=== PATIENT | male | born 1950 | race Caucasian/White ===

== ENCOUNTER 2022-08-07 18:20 | Inpatient (IN) | payer BC, OTHER ==
[~2022-08-07] VITALS: Ht 175.3 cm; Wt 73.0 kg
[2022-08-07] MEDS ORDERED: ALBUTEROL SULF 2.5 MG/0.5ML(0.5%) NEB SOLN NEB ONE (18:45)
[2022-08-07] MEDS ORDERED: cefTRIAXone 1GM/50ML D5W 50 ML IV ONE (18:45)
[2022-08-07] MEDS ORDERED: IPRATROPIUM BROM 0.5 MG/2.5ML INH SOL NEB ONE (18:45)
[2022-08-07 19:28] LABS: Basophils # (auto) 0 10 ^3/uL (0-0.2); Basophils % (auto) 0.6 % (0.0-2.0); Eosinophils # (auto) 0.1 10 ^3/uL (0-0.8); Eosinophils % (auto) 1.2 % (0.0-7.0); Hematocrit 44.5 % (41.0-53.0); Hemoglobin 15.4 g/dL (13.5-17.5); Lymphocytes # (auto) 1.3 10 ^3/uL (0.4-5.4); Lymphocytes % (auto) 15.4 % (10.0-50.0); Mean Corpuscular Hemoglobin 31.3 pg (28.0-32.0); Mean Corpuscular Hgb Conc. 34.6 g/dL (32.0-36.0); Mean Corpuscular Volume 90.4 fL (80.0-100.0); Monocytes # (auto) 0.6 10 ^3/uL (0-1.3); Monocytes % (auto) 7.2 % (0.0-12.0); Neutrophils # (auto) 6.2 10 ^3/uL (1.6-8.6); Neutrophils % (auto) 75.6 % (37.0-80.0); Nucleated Red Blood Cells % 0.1 %; Red Blood Cells 4.92 10^6/uL (4.5-5.90); Red Cell Distribution Width 13.4 % (11.8-14.3); White Blood Cell 8.2 10^3/uL (4.4-10.8)
[2022-08-07 19:46] LABS: Calcium 9.1 mg/dL (8.5-10.1); Potassium 3.9 mmol/L (3.5-5.1)
[2022-08-07 19:48] LABS: BUN/Creatinine Ratio 11.7 (10.0-20.0)
[2022-08-07 19:51] LABS: Bilirubin, Total 0.3 mg/dL (0.2-1.0); Total Protein 7.7 g/dL (6.4-8.2)
[2022-08-07] MEDS ORDERED: PIPERACILLIN-TAZOB 3.375GM 100 ML IV ONE (21:30)
[2022-08-07] MEDS ORDERED: IOHEXOL 350 MG/ML 100ML IJ ONE (21:34)
[2022-08-08] MEDS ORDERED: MORPHINE SULFATE INJ 2 MG/ml SYRG IV PRN (02:45)
[2022-08-08] MEDS ORDERED: ACETAMINOPHEN 325 MG TAB PO PRN (02:45)
[2022-08-08] MEDS ORDERED: NITROGLYCERIN 0.4 MG SL TAB SL PRN (02:45)
[2022-08-08] MEDS ORDERED: ONDANSETRON HCL 4 MG/2 ML VIAL IV PRN (02:45)
[2022-08-08] MEDS: TEMAZEPAM 15 MG CAP PO PRN ×2 (03:40→21:17)
[2022-08-08] MEDS ORDERED: CLINDAMYCIN 600MG IV 50 ML IV SCH (06:00)
[2022-08-08] MEDS ORDERED: CLINDAMYCIN 300MG IV 100 ML IV ONE (06:57)
[2022-08-08 06:59] LABS: Basophils # (auto) 0 10 ^3/uL (0-0.2); Basophils % (auto) 0.5 % (0.0-2.0); Eosinophils # (auto) 0.1 10 ^3/uL (0-0.8); Eosinophils % (auto) 1.2 % (0.0-7.0); Hematocrit 43.7 % (41.0-53.0); Hemoglobin 15.2 g/dL (13.5-17.5); Lymphocytes # (auto) 1.2 10 ^3/uL (0.4-5.4); Mean Corpuscular Hemoglobin 31.8 pg (28.0-32.0); Mean Corpuscular Hgb Conc. 34.8 g/dL (32.0-36.0); Mean Corpuscular Volume 91.4 fL (80.0-100.0); Monocytes # (auto) 0.7 10 ^3/uL (0-1.3); Monocytes % (auto) 7.1 % (0.0-12.0); Neutrophils # (auto) 8.2 10 ^3/uL (1.6-8.6); Neutrophils % (auto) 79.2 % (37.0-80.0); Nucleated Red Blood Cells % 0.1 %; Red Blood Cells 4.79 10^6/uL (4.5-5.90); Red Cell Distribution Width 13.4 % (11.8-14.3); White Blood Cell 10.3 10^3/uL (4.4-10.8)
[2022-08-08 07:22] LABS: Potassium 4.2 mmol/L (3.5-5.1)
[2022-08-08 07:33] LABS: Albumin 3.8 g/dL (3.4-5.0); BUN/Creatinine Ratio 9.9 (10.0-20.0); Bilirubin, Total 0.2 mg/dL (0.2-1.0); Total Protein 7.8 g/dL (6.4-8.2)
[2022-08-08 08:00] VITALS: BP 142/94
[2022-08-08] MEDS: ENOXAPARIN SOD 40 MG/0.4 ML SYRINGE SC SCH (09:49)
[2022-08-08] MEDS: ALBUTEROL SULF 2.5 MG/0.5ML(0.5%) NEB SOLN NEB PRN ×2 (10:30→19:34)
[2022-08-08] MEDS ORDERED: methylPREDNISolone SOD SUCC 40 MG/ML VL IV ONE (11:15)
[2022-08-08] MEDS: CLINDAMYCIN 300MG IV 50 ML IV SCH ×3 (14:24→23:24)
[2022-08-08] MEDS: cefTRIAXone 1GM/50ML D5W 50 ML IV SCH (19:06)
[2022-08-08] MEDS: methylPREDNISolone SOD SUCC 40 MG/ML VL IV SCH (21:30)
[2022-08-09] MEDS: CLINDAMYCIN 300MG IV 50 ML IV SCH ×6 (02:12→22:16)
[2022-08-09] MEDS: ALBUTEROL SULF 2.5 MG/0.5ML(0.5%) NEB SOLN NEB PRN (03:50)
[2022-08-09 06:19] LABS: Basophils # (auto) 0 10 ^3/uL (0-0.2); Basophils % (auto) 0.1 % (0.0-2.0); Eosinophils # (auto) 0 10 ^3/uL (0-0.8); Hemoglobin 15.7 g/dL (13.5-17.5); Lymphocytes # (auto) 0.7 10 ^3/uL (0.4-5.4); Lymphocytes % (auto) 5.9 % (10.0-50.0); Mean Corpuscular Hemoglobin 31.5 pg (28.0-32.0); Mean Corpuscular Hgb Conc. 34.1 g/dL (32.0-36.0); Mean Corpuscular Volume 92.3 fL (80.0-100.0); Monocytes # (auto) 0.4 10 ^3/uL (0-1.3); Monocytes % (auto) 3.1 % (0.0-12.0); Neutrophils # (auto) 10.5 10 ^3/uL (1.6-8.6); Neutrophils % (auto) 90.9 % (37.0-80.0); Nucleated Red Blood Cells % 0.1 %; Red Blood Cells 4.98 10^6/uL (4.5-5.90); Red Cell Distribution Width 13.2 % (11.8-14.3); White Blood Cell 11.5 10^3/uL (4.4-10.8)
[2022-08-09 06:40] LABS: BUN/Creatinine Ratio 20.7 (10.0-20.0); Calcium 9.4 mg/dL (8.5-10.1); Potassium 4.5 mmol/L (3.5-5.1)
[2022-08-09] MEDS: ALBUTEROL SULF 2.5 MG/0.5ML(0.5%) NEB SOLN NEB SCH ×4 (06:41→23:48)
[2022-08-09 10:57] VITALS: BP 138/80
[2022-08-09 11:30] VITALS: BP 138/80
[2022-08-09] MEDS: methylPREDNISolone SOD SUCC 40 MG/ML VL IV SCH ×2 (12:15→22:17)
[2022-08-09] MEDS: ENOXAPARIN SOD 40 MG/0.4 ML SYRINGE SC SCH (12:15)
[2022-08-09] MEDS ORDERED: FLUT1AER12 IN (12:47)
[2022-08-09 16:40] VITALS: BP 148/91
[2022-08-09] MEDS: cefTRIAXone 1GM/50ML D5W 50 ML IV SCH (18:33)
[2022-08-09 22:00] VITALS: BP 149/95
[2022-08-10] MEDS: TEMAZEPAM 15 MG CAP PO PRN ×2 (00:35→23:36)
[2022-08-10] MEDS: CLINDAMYCIN 300MG IV 50 ML IV SCH ×3 (00:38→06:51)
[2022-08-10 05:00] VITALS: BP 126/82
[2022-08-10] MEDS: ALBUTEROL SULF 2.5 MG/0.5ML(0.5%) NEB SOLN NEB SCH ×4 (06:10→23:38)
[2022-08-10 08:52] VITALS: BP 110/75
[2022-08-10] MEDS: ENOXAPARIN SOD 40 MG/0.4 ML SYRINGE SC SCH (09:56)
[2022-08-10] MEDS: methylPREDNISolone SOD SUCC 40 MG/ML VL IV SCH ×2 (09:59→21:32)
[2022-08-10 13:08] VITALS: BP 143/89
[2022-08-10] MEDS ORDERED: AZITHROMYCIN 250 MG TAB PO ONE (16:30)
[2022-08-10 16:35] VITALS: BP 148/91
[2022-08-10 20:00] VITALS: BP 142/88
[2022-08-10 22:00] VITALS: BP 141/89
[2022-08-11 05:00] VITALS: BP 142/85
[2022-08-11] MEDS: ALBUTEROL SULF 2.5 MG/0.5ML(0.5%) NEB SOLN NEB SCH ×4 (05:46→22:07)
[2022-08-11 05:49] VITALS: BP 142/85
[2022-08-11 09:00] VITALS: BP 122/77
[2022-08-11] MEDS: ENOXAPARIN SOD 40 MG/0.4 ML SYRINGE SC SCH (09:00)
[2022-08-11] MEDS: AZITHROMYCIN 250 MG TAB PO SCH (09:00)
[2022-08-11] MEDS: methylPREDNISolone SOD SUCC 40 MG/ML VL IV SCH ×2 (09:01→23:03)
[2022-08-11 13:00] VITALS: BP 130/66
[2022-08-11 17:00] VITALS: BP 149/93
[2022-08-11 22:00] VITALS: BP 125/93
[2022-08-11] MEDS: TEMAZEPAM 15 MG CAP PO PRN (23:04)
[2022-08-12] MEDS: ALBUTEROL SULF 2.5 MG/0.5ML(0.5%) NEB SOLN NEB SCH ×6 (02:04→22:04)
[2022-08-12 05:00] VITALS: BP 113/78
[2022-08-12 08:30] VITALS: BP 118/76
[2022-08-12] MEDS: methylPREDNISolone SOD SUCC 40 MG/ML VL IV SCH ×2 (10:02→21:08)
[2022-08-12] MEDS: ENOXAPARIN SOD 40 MG/0.4 ML SYRINGE SC SCH (10:03)
[2022-08-12] MEDS: AZITHROMYCIN 250 MG TAB PO SCH (10:03)
[2022-08-12 12:20] VITALS: BP 132/96
[2022-08-12 17:20] VITALS: BP 132/88
[2022-08-12] MEDS: TEMAZEPAM 15 MG CAP PO PRN (21:08)
[2022-08-12 22:00] VITALS: BP 125/96
[2022-08-13] MEDS: ALBUTEROL SULF 2.5 MG/0.5ML(0.5%) NEB SOLN NEB SCH ×6 (02:03→22:03)
[2022-08-13 05:00] VITALS: BP 128/82
[2022-08-13] MEDS ORDERED: SODIUM CHLORIDE 0.9 % NEB SOLN 3ML NEB ONE (06:36)
[2022-08-13 08:30] VITALS: BP 136/94
[2022-08-13] MEDS: AZITHROMYCIN 250 MG TAB PO SCH (09:07)
[2022-08-13] MEDS: ENOXAPARIN SOD 40 MG/0.4 ML SYRINGE SC SCH (09:07)
[2022-08-13] MEDS: methylPREDNISolone SOD SUCC 40 MG/ML VL IV SCH ×2 (09:07→21:05)
[2022-08-13 09:11] VITALS: BP 148/90
[2022-08-13] MEDS ORDERED: AZIT500T66 PO (09:52)
[2022-08-13] MEDS ORDERED: PRED20TA2 PO (09:52)
[2022-08-13 13:03] VITALS: BP 133/87
[2022-08-13 17:00] VITALS: BP 155/88
[2022-08-13] MEDS: TEMAZEPAM 15 MG CAP PO PRN (21:05)
[2022-08-13 22:00] VITALS: BP 109/81
[2022-08-14] VITALS (7 sets, daily range): BP systolic 109–155; BP diastolic 73–94
[2022-08-14] MEDS: ALBUTEROL SULF 2.5 MG/0.5ML(0.5%) NEB SOLN NEB SCH ×6 (01:54→22:04)
[2022-08-14] MEDS: ENOXAPARIN SOD 40 MG/0.4 ML SYRINGE SC SCH (10:01)
[2022-08-14] MEDS: methylPREDNISolone SOD SUCC 40 MG/ML VL IV SCH (10:01)
[2022-08-14] MEDS: AZITHROMYCIN 250 MG TAB PO SCH (10:02)
[2022-08-14] MEDS ORDERED: predniSONE 20 MG TAB PO ONE (20:00)
[2022-08-14] MEDS: TEMAZEPAM 15 MG CAP PO PRN (20:21)
[2022-08-15] MEDS: ALBUTEROL SULF 2.5 MG/0.5ML(0.5%) NEB SOLN NEB SCH ×6 (01:58→22:09)
[2022-08-15 04:50] VITALS: BP 111/81
[2022-08-15 07:35] VITALS: BP 136/93
[2022-08-15 09:00] VITALS: BP 136/93
[2022-08-15] MEDS: ENOXAPARIN SOD 40 MG/0.4 ML SYRINGE SC SCH (09:06)
[2022-08-15] MEDS: predniSONE 20 MG TAB PO SCH (09:06)
[2022-08-15] MEDS: AZITHROMYCIN 250 MG TAB PO SCH (09:06)
[2022-08-15 13:00] VITALS: BP 136/71
[2022-08-15 17:04] VITALS: BP 141/95
[2022-08-15 22:00] VITALS: BP 118/82
[2022-08-15] MEDS ORDERED: TEMAZEPAM 15 MG CAP PO ONE (22:00)
[2022-08-16] MEDS: ALBUTEROL SULF 2.5 MG/0.5ML(0.5%) NEB SOLN NEB SCH ×4 (02:07→14:00)
[2022-08-16 05:00] VITALS: BP 109/73
[2022-08-16 08:00] VITALS: BP 114/79
[2022-08-16] MEDS: ENOXAPARIN SOD 40 MG/0.4 ML SYRINGE SC SCH (10:00)
[2022-08-16] MEDS ORDERED: ALBUAER3 IN (10:25)
[2022-08-16] MEDS: predniSONE 20 MG TAB PO SCH (10:38)
[2022-08-16 12:00] VITALS: BP 114/79
[2022-08-16 13:00] VITALS: BP 111/82
== END 2022-08-16 13:55 | disposition home or self-care (01) | DRG 193 ==
LOC: EDBD 18:20 → ER 18:20 → TELE 08-08 02:39 → TELE-EAST 08-09 10:53 → EAST 08-15 14:40
PROVIDERS: ADMIT Nurse Practitioner; ATTEND Internal Medicine Pulmonary Disease
DX: J18.9 Pneumonia, unspecified organism (principal); J96.01 Acute respiratory failure with hypoxia; J44.0 Chronic obstructive pulmonary disease with (acute) lower respiratory infection; J44.1 Chronic obstructive pulmonary disease with (acute) exacerbation; Z87.891 Personal history of nicotine dependence; Z20.822 Contact with and (suspected) exposure to COVID-19
CPT/HCPCS: 36415; 36600; 71045; 71275; 80048; 80053; 82805; 83880; 84484; 85025; 87426; 93005; 94640; 96365; 96367; G0378; J0696; J2543; J3490